=== PATIENT | male | born 1985 | race Caucasian/White ===

== ENCOUNTER → 2016-12-13 | Outpatient (CLI) | payer OTHER ==
[2016-12-13 09:45] LABS: BASO % 0.4 %; BASO ABS # 0.02 K/uL (0-0.2); COMPLETE YES; EOS % 1.1 %; HEMATOCRIT 44.6 % (42-52); IG% 0.2 %; LYMPH % 29.4 %; LYMPH ABS # 1.58 K/uL (1.2-3.4); MEAN CELL VOLUME 85.1 fL (80-100); MEAN CORPUSCULAR HEMOGLOBIN 29.8 pg (25-34); MEAN PLATELET VOLUME 10.8 fL (7.4-10.4); MONO % 12.1 %; NEUT % 56.8 %; PLATELET COUNT 196 K/uL (130-400); RED BLOOD COUNT 5.24 M/uL (4.7-6.1); WHITE BLOOD COUNT 5.37 K/uL (4.8-10.8)
[2016-12-13 10:21] LABS: BLOOD UREA NITROGEN 20 mg/dl (7-18); BUN/CREATININE RATIO 16.7 (10-20); CALCIUM 9.2 mg/dl (8.5-10.1); CARBON DIOXIDE 32 mmol/L (21-32); CHLORIDE 106 mmol/L (98-107); GLUCOSE 86 mg/dl (70-99); POTASSIUM 4.4 mmol/L (3.5-5.1); SODIUM 143 mmol/L (136-145)
[2016-12-13 10:37] LABS: ALB/GLOB RATIO 1.2 (0.9-2); ALKALINE PHOSPHATASE 59 U/L (45-117); ALT/SGPT 33 U/L (12-78); AST/SGOT 19 U/L (15-37); CHOLESTEROL 132 mg/dl (0-200); CHOLESTEROL/HDL RATIO 2.5; HDL CHOLESTEROL 52 mg/dl; LDL CHOLESTEROL CALCULATED 70 mg/dl; TRIGLYCERIDES 51 mg/dl (0-150); VERY LOW DENSITY LIPOPROT CALC 10 mg/dl
== END | disposition home or self-care (01) ==
LOC: C.LAB 09:07
PROVIDERS: ATTEND Nurse Practitioner Adult Health
DX: Z00.00 Encounter for general adult medical examination without abnormal findings (principal); Z13.220 Encounter for screening for lipoid disorders

== ENCOUNTER → 2017-03-18 | Outpatient (CLI) | payer OTHER ==
--- NOTE | 2017-03-18 14:31 | EEG Procedure Note ---
EEG Procedure Note Date of Service Mar 18, 2017. Start / End Times Start Time: 8:04 AM End Time: 8:25 AM Referring Physician Seema Hobson History This is a 31-year-old male who is being evaluated for seizures. EEG for further evaluation of seizure etiology. Currently on no medications. Description This is a 21 electrode EEG with a single channel dedicated to limited EKG. The electrodes were placed in accordance with the International 10-20 system. At the start of the recording the patient was in an awake state. Background was well organized and composed of symmetric mixed alpha and beta frequencies. There was a symmetric well-formed moderate amplitude 10-11 Hz posterior dominant rhythm that was reactive to eye opening and closure. Hyperventilation with good effort produced no abnormalities. Intermittent photic stimulation at various frequencies produced no abnormalities. Sleep was indicated by vertex waves and symmetric sleep spindles Interpretation This is a normal awake and asleep routine EEG. There was no electrographic seizures or epileptiform discharges. Clinical Correlation A normal EEG does not rule out epilepsy if there is a strong clinical suspicion.
== END ==
LOC: C.NEUR 07:30
PROVIDERS: ATTEND Psychiatry & Neurology Neurology
DX: R56.9 Unspecified convulsions (principal)

== ENCOUNTER 2018-05-22 18:50 | Emergency (ER) | payer OTHER ==
[~2018-05-22] VITALS: Ht 182.9 cm; Wt 101.2 kg
[2018-05-22 18:52] VITALS: Ht 182.9 cm; Wt 101.2 kg
[2018-05-22] MEDS ORDERED: ONDANSETRON INJ 2 MG/ML 2 ML VIAL IV STA (19:14)
[2018-05-22] MEDS ORDERED: KETOROLAC TROMETHAMINE 30 MG/ML VIAL IV STA (19:14)
[2018-05-22] MEDS ORDERED: SODIUM CHLORIDE 0.9% 1000ML 1,000 ML IV ONE (19:14)
[2018-05-22] MEDS ORDERED: ACETAMINOPHEN 325 MG TAB PO STA (19:14)
--- NOTE | 2018-05-22 19:34 | DIAGNOSTIC IMAGING REPORT ---
SINGLE VIEW CHEST CLINICAL HISTORY: Fever. Sepsis. FINDINGS: An AP, portable, upright chest radiograph is obtained. No prior studies are available for comparison at the time of dictation. The examination is degraded by portable technique and patient rotation. The cardiomediastinal silhouette is unremarkable. There is airspace consolidation identified at the left lung base, typical in appearance for pneumonia. The right lung appears clear. No large pleural effusion or pneumothorax is seen. The bony thorax is grossly intact. IMPRESSION: There is patchy airspace consolidation at the left lung base typical in appearance for pneumonia. Radiographic follow-up to resolution is recommended. Electronically signed by: Raul Hodges M.D. 05/22/2018 7:33 PM Dictated Date/Time: 05/22/2018 7:32 PM
[2018-05-22 19:57] LABS: BASO % 0.3 %; BASO ABS # 0.02 K/uL (0-0.2); HEMATOCRIT 42.3 % (42-52); HEMOGLOBIN 14.3 g/dL (14.0-18.0); IG# 0.01 K/uL (0.00-0.02); LYMPH % 14.7 %; LYMPH ABS # 1.03 K/uL (1.2-3.4); MEAN CORPUSCULAR HEMOGLOBIN 29.1 pg (25-34); MEAN CORPUSCULAR HGB CONC 33.8 g/dl (32-36); MONO ABS # 0.42 K/uL (0.11-0.59); NEUT % 78.9 %; NEUT ABS # 5.54 K/uL (1.4-6.5); PLATELET COUNT 162 K/uL (130-400); RED CELL DISTRIBUTION WIDTH SD 41.2 fL (36.4-46.3); WHITE BLOOD COUNT 7.02 K/uL (4.8-10.8)
[2018-05-22 20:19] LABS: ALBUMIN 3.9 gm/dl (3.4-5.0); CALCIUM 8.5 mg/dl (8.5-10.1); CREATININE 1.41 mg/dl (0.60-1.40)
--- NOTE | 2018-05-22 20:19 | EMERGENCY ROOM VISIT NOTE ---
History Report prepared by Oscar: Az Mckinnon Under the Supervision of: Dr. Sacha Nava M.D. First contact with patient: 18:57 Chief Complaint: FEVER Stated Complaint: FEVER, DIZZY History of Present Illness The patient is a 32 year old male with a past medical history of seizures who presents to the ED with a cc of intermittent fevers, chills, and a headache beginning 3 days ago. The patient reports being outside all day in the sun playing golf and not "feeling right" after playing. He notes that he did take Excedrin for his headache. The patient also reports that he has not been eating much since yesterday but he is drinking water. He also stated that his last seizure was induced by being out in the sun for too long along with not eating enough. He notes that he used to take Keppra for his seizures but stopped since his last episode was January 2014. Positive for productive cough. Negative for urinary symptoms, nausea, vomiting, recent travel, abx use, rashes , and tick bites. Source of History: patient Onset: 3 days ago Position: head Quality: ache Timing: intermittent Associated Symptoms: + fevers, + chills, + cough, No nausea, No vomiting, No urinary symptoms Review of Systems See HPI for pertinent positives and negatives. A total of ten systems were reviewed and were otherwise negative. Past Medical & Surgical Medical Problems: (1) Seizures Family History Patient reports no known family medical history. Social History Smoking Status: Never Smoker Marital Status: Housing Status: lives with significant other Current/Historical Medications Scheduled Doxycycline Monohydrate (Monodox), 100 MG PO BID Scheduled PRN Ondansetron Hcl (Zofran), 4 MG PO Q8H PRN for Nausea Allergies Coded Allergies: No Known Allergies (Unverified , 05/22/18) Physical Exam Vital Signs Date Time Temp Pulse Resp B/P (MAP) Pulse Ox O2 Delivery O2 Flow Rate FiO2 05/22/18 20:26 38.4 102 20 132/69 94 Room Air 05/22/18 19:34 105 05/22/18 18:52 39.4 112 20 135/91 96 Room Air Physical Exam GENERAL: Awake, alert, well-appearing, NAD HENT: Normocephalic, atraumatic. Posterior pharynx clear EYES: Normal conjunctiva. Sclera non-icteric. PERRL. No anisocoria. NECK: Supple. No nuchal rigidity. FROM. RESPIRATORY: CTAB, no rhonchi, wheezing, crackles CARDIAC: RRR, no MRG ABDOMEN: Soft, NTND, BS+ MSK: No chest wall TTP, no LE edema NEURO: GCS 15, CN 2-12 intact, moves all 4s on command SKIN: No rash or jaundice noted. Medical Decision & Procedures ER Provider Diagnostic Interpretation: Radiology results as stated below per my review and radiologist interpretation: SINGLE VIEW CHEST CLINICAL HISTORY: Fever. Sepsis. FINDINGS: An AP, portable, upright chest radiograph is obtained. No prior studies are available for comparison at the time of dictation. The examination is degraded by portable technique and patient rotation. The cardiomediastinal silhouette is unremarkable. There is airspace consolidation identified at the left lung base, typical in appearance for pneumonia. The right lung appears clear. No large pleural effusion or pneumothorax is seen. The bony thorax is grossly intact. IMPRESSION: There is patchy airspace consolidation at the left lung base typical in appearance for pneumonia. Radiographic follow-up to resolution is recommended. Electronically signed by: Raul Hodges M.D. 05/22/2018 7:33 PM Dictated Date/Time: 05/22/2018 7:32 PM Laboratory Results 05/22/18 19:39 Red Blood Count 4.92, Mean Corpuscular Volume 86.0, Mean Corpuscular Hemoglobin 29.1, Mean Corpuscular Hemoglobin Concent 33.8, Mean Platelet Volume 11.0, Neutrophils (%) (Auto) 78.9, Lymphocytes (%) (Auto) 14.7, Monocytes (%) (Auto) 6.0, Eosinophils (%) (Auto) 0.0, Basophils (%) (Auto) 0.3, Neutrophils # (Auto) 5.54, Lymphocytes # (Auto) 1.03, Monocytes # (Auto) 0.42, Eosinophils # (Auto) 0.00, Basophils # (Auto) 0.02 05/22/18 19:39 Test 05/22/18 19:20 05/22/18 19:39 Urine Color YELLOW Urine Appearance CLEAR (CLEAR) Urine pH 5.0 (4.5-7.5) Urine Specific [place] 1.007 (1.000-1.030) Urine Protein NEG (NEG) Urine Glucose (UA) NEG (NEG) Urine Ketones 1+ (NEG) Urine Occult Blood NEG (NEG) Urine Nitrite NEG (NEG) Urine Bilirubin NEG (NEG) Urine Urobilinogen NEG (NEG) Urine Leukocyte Esterase NEG (NEG) Urine WBC (Auto) 0 /hpf (0-5) Urine RBC (Auto) 0-4 /hpf (0-4) Urine Hyaline Casts (Auto) 0 /lpf (0-5) Urine Epithelial Cells (Auto) 0-5 /lpf (0-5) Urine Bacteria (Auto) NEG (NEG) White Blood Count 7.02 K/uL (4.8-10.8) Red Blood Count 4.92 M/uL (4.7-6.1) Hemoglobin 14.3 g/dL (14.0-18.0) Hematocrit 42.3 % (42-52) Mean Corpuscular Volume 86.0 fL (80-100) Mean Corpuscular Hemoglobin 29.1 pg (25-34) Mean Corpuscular Hemoglobin Concent 33.8 g/dl (32-36) Platelet Count 162 K/uL (130-400) Mean Platelet Volume 11.0 fL (7.4-10.4) Neutrophils (%) (Auto) 78.9 % Lymphocytes (%) (Auto) 14.7 % Monocytes (%) (Auto) 6.0 % Eosinophils (%) (Auto) 0.0 % Basophils (%) (Auto) 0.3 % Neutrophils # (Auto) 5.54 K/uL (1.4-6.5) Lymphocytes # (Auto) 1.03 K/uL (1.2-3.4) Monocytes # (Auto) 0.42 K/uL (0.11-0.59) Eosinophils # (Auto) 0.00 K/uL (0-0.5) Basophils # (Auto) 0.02 K/uL (0-0.2) RDW Standard Deviation 41.2 fL (36.4-46.3) RDW Coefficient of Variation 13.0 % (11.5-14.5) Immature Granulocyte % (Auto) 0.1 % Immature Granulocyte # (Auto) 0.01 K/uL (0.00-0.02) Anion Gap 7.0 mmol/L (3-11) Est Creatinine Clear Calc Drug Dose 92.6 ml/min Estimated GFR () 75.9 Estimated GFR (Non- 65.4 BUN/Creatinine Ratio 8.9 (10-20) Calcium Level 8.5 mg/dl (8.5-10.1) Total Bilirubin 0.5 mg/dl (0.2-1) Direct Bilirubin 0.2 mg/dl (0-0.2) Aspartate Amino Transf (AST/SGOT) 33 U/L (15-37) Alanine Aminotransferase (ALT/SGPT) 46 U/L (12-78) Alkaline Phosphatase 60 U/L (45-117) Total Protein 8.0 gm/dl (6.4-8.2) Albumin 3.9 gm/dl (3.4-5.0) Laboratory results reviewed by me Medications Administered Medications (Trade) Dose Ordered Sig/Jaylin Route Start Time Stop Time Status Last Admin Dose Admin Sodium Chloride 1,000 ml @ 2,000 mls/hr Q30M ONCE IV 05/22/18 19:14 05/22/18 19:43 DC 05/22/18 19:41 2,000 MLS/HR Ketorolac Tromethamine (Toradol Inj) 30 mg NOW STAT IV 05/22/18 19:14 05/22/18 19:17 DC 05/22/18 19:41 30 MG Ondansetron HCl (Zofran Inj) 4 mg NOW STAT IV 05/22/18 19:14 05/22/18 19:17 DC 05/22/18 19:41 4 MG Acetaminophen (Tylenol Tab) 650 mg NOW STAT PO 05/22/18 19:14 05/22/18 19:17 DC 05/22/18 19:35 650 MG Sodium Chloride 500 ml @ 999 mls/hr Q31M STAT IV 05/22/18 20:58 05/22/18 21:28 05/22/18 21:02 999 MLS/HR ECG Per My Interpretation Indication: other (Headache, fever, chills) Rate (beats per minute): 101 Rhythm: sinus tachycardia Findings: other (Normal intervals and normal axis) ED Course 1907: The patient was evaluated in room B8. A complete history and physical exam was performed. 2039: I reevaluated the patient and updated him on the treatment plan 2049: I reevaluated the patient. Discussed results and discharge instructions: He verbalized understanding and agreement. The patient is ready for discharge. Medical Decision Nursing notes reviewed. Ancillary studies and prior records reviewed. The patient is a 32 year old male with a past medical history of seizures who presents to the ED with a cc of fevers, chills, and a headache beginning 3 days ago. Differential diagnosis: Etiologies such as viral syndrome, otitis, pharyngitis, pneumonia, influenza, meningitis, urinary tract infection, sepsis, bacteremia, as well as others were entertained. Patient was seen and evaluated the bedside. Patient has had some intervening fever with some associated headaches and chills. Patient has had some cough that is been somewhat purulent in nature. Patient denies smoking. Patient on exam is not very ill-appearing with the patient is febrile and tachycardic. Patient did blood work completed chest x-ray along with medications and IV fluids for symptom control. Patient also did have urinalysis completed. Patient's chest x-ray concerning for pneumonia. Patient did get a dose of doxycycline. Patient's white blood cell count within normal limits. Patient's other blood work fairly reassuring and unremarkable. Patient has normal white blood cell count the patient's urinalysis is clear of infection. Positive for ketones likely secondary to dehydration. The patient has a curb 65 score of 0 I believe he is suitable for outpatient follow-up and treatment at this time. Patient was informed of all findings. Patient was given strict follow-up, discharge, and return precautions. All questions were answered. Patient was deemed suitable for outpatient follow-up at this time. Patient agreed with the plan of care and was safely discharged home. Medication Reconcilliation Current Medication List: was personally reviewed by me Blood Pressure Screening Patient's blood pressure: Normal blood pressure Impression Primary Impression: PNA (pneumonia) Additional Impression: Fever Scribe Attestation The scribe's documentation has been prepared under my direction and personally reviewed by me in its entirety. I confirm that the note above accurately reflects all work, treatment, procedures, and medical decision making performed by me. Departure Information Dispostion Home / Self-Care Prescriptions Ondansetron Hcl (ZOFRAN) 4 Mg Tab 4 MG PO Q8H Y for Nausea, #12 TAB Prov: Sacha Nava M.D. 05/22/18 Doxycycline Monohydrate (Monodox) 100 Mg Cap 100 MG PO BID for 7 Days, #14 CAP Prov: Sacha Nava M.D. 05/22/18 Referrals No Doctor, Assigned (PCP) Forms HOME CARE DOCUMENTATION FORM, IMPORTANT VISIT INFORMATION Patient Instructions ED Fever Control, ED Pneumonia Adult, [facility] Additional Instructions Please return to the emergency department if you have worsening or recurrent symptoms not amenable to at-home treatment. Please call for a follow-up appointment with her primary care physician. Please take your medications as prescribed. If you have other concerns and/or complaints please feel free to also call your primary care physician's office or return the ED for further evaluation, management, and treatment. You may take 600 mg Ibuprofen every 6 hours as needed for pain/fever with food unless told by your physician not to take NSAIDs. You may take tylenol 650 mg every 6 hours as needed for pain/fever unless told by your physician to not take it or have liver problems. You may take motrin and tylenol separately or at the same time. Take your medications as prescribed. If taking an antibiotic consider taking a probiotic and/or eating yogurt, but at the least, please take with food as it can cause upset stomach. You have been examined and treated today on an emergency basis only. This is not a substitute for, or an effort to provide, complete comprehensive medical care. It is impossible to recognize and treat all injuries or illnesses in a single emergency department visit. It is therefore important that you follow up closely with [facility], your PCP, and/or your specialist(s). Call as soon as possible for an appointment. Thank you for your time and consideration. I look forward to speaking with you again soon. Please don't hesitate to call us if you have any questions. Problem Qualifiers Primary Impression: PNA (pneumonia) Pneumonia type: due to unspecified organism Laterality: left Lung location : lower lobe of lung Qualified Codes: J18.1 - Lobar pneumonia, unspecified organism Additional Impression: Fever Fever type: unspecified Qualified Codes: R50.9 - Fever, unspecified
[2018-05-22 20:26] VITALS: TEMP 38.4
[2018-05-22] MEDS ORDERED: DOXY100C76 PO (20:38)
[2018-05-22] MEDS ORDERED: ONDA4TAB46 PO (20:39)
[2018-05-22] MEDS ORDERED: SODIUM CHLORIDE 0.9% 500ML 500 ML IV STA (20:58)
[2018-05-22 21:49] VITALS: BP 133/65; PULSE 94; O2SAT 96
== END 2018-05-22 21:50 | disposition home or self-care (01) ==
LOC: C.EDB 18:51
DX: J18.9 Pneumonia, unspecified organism (principal); Z86.69 Personal history of other diseases of the nervous system and sense organs